=== PATIENT | male | born 1955 | race Caucasian/White ===

== ENCOUNTER 2018-01-03 13:59 | Outpatient (CLI) ==
--- NOTE | 2018-01-03 14:57 | DI ---
EXAM: Right knee three-view HISTORY: Acute knee pain COMPARISON: None FINDINGS: No fracture or dislocation. 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 No joint effusion. Mild quadriceps tendon enthesopathy. Atherosclerot ic vascular calcification. IMPERSSION: Moderate tricompartmental osteoarthritis.
== END 2018-01-03 14:00 | disposition home or self-care (01) ==
LOC: RAD 13:59
PROVIDERS: ATTEND Family Medicine
DX: M25.561 Pain in right knee (principal)